=== PATIENT | female | born 1955 | race Caucasian/White ===

== ENCOUNTER 2019-12-07 05:49 | Outpatient (RCR) | payer BC ==
[~2019-12-07] VITALS: Ht 160 cm; Wt 53.9 kg
[2019-12-07] MEDS ORDERED: ELDE1CAP PO (09:19)
[2019-12-07] MEDS ORDERED: CALC-794 PO (09:19)
[2019-12-07 09:23] VITALS: BP 125/65
[2019-12-07 09:52] LABS: BASOPHILS % (AUTO) 1 % (0-10); EOSINOPHILS # (AUTO) 0.1 10^3/uL (0.0-0.3); EOSINOPHILS % (AUTO) 2 % (0-10); HEMATOCRIT 40 % (35-52); HEMOGLOBIN 13.7 G/DL (11.5-16.0); LYMPHOCYTES % (AUTO) 23 % (12-44); MEAN CORPUSCULAR HEMOGLOBIN 29 PG (25-34); MEAN CORPUSCULAR HGB CONC 34 G/DL (32-36); MEAN CORPUSCULAR VOLUME 86 FL (80-99); MONOCYTES # (AUTO) 0.7 X 10^3 (0.0-1.0); MONOCYTES % (AUTO) 16 % (0-12); NEUTROPHILS # (AUTO) 2.6 X 10^3 (1.8-7.8); NEUTROPHILS % (AUTO) 60 % (42-75); PLATELET COUNT 183 10^3/uL (130-400); RED CELL DISTRIBUTION WIDTH 12.1 % (10.0-14.5); WHITE BLOOD COUNT 4.3 10^3/uL (4.3-11.0)
--- NOTE | 2019-12-07 10:12 | Diagnostic Imaging Report ---
INDICATION: Preoperative evaluation prior to hysterectomy PA and lateral views of the chest were obtained. COMPARISON: No previous study is available for comparison at this time. FINDINGS: Heart size and pulmonary vasculature are within normal limits, and the lungs are clear, bilaterally. There is degenerative spurring noted about the acromioclavicular joints, greater on the right. IMPRESSION: Unremarkable chest. Dictated by: Dictated on workstation # [id number]
[2019-12-12] MEDS ORDERED: IBUP-1780 PO (06:40)
[2019-12-12] MEDS ORDERED: DCS100C PO (06:40)
[2019-12-12] MEDS ORDERED: OXYC1TAB87 PO (06:40)
== END 2019-12-07 15:07 | disposition home or self-care (01) ==
LOC: PREOP 05:49
PROVIDERS: ATTEND Obstetrics & Gynecology
DX: Z01.818 Encounter for other preprocedural examination (principal); Z01.812 Encounter for preprocedural laboratory examination; N81.11 Cystocele, midline; Z20.828 Contact with and (suspected) exposure to other viral communicable diseases
CPT/HCPCS: 71046; 85025; 86850; 86900; 86901; 87081; 93005; U0002; 36415; 87635

== ENCOUNTER 2019-12-11 06:10 | Day surgery (SDC) | payer BC ==
[~2019-12-11] VITALS: Ht 160 cm; Wt 53.9 kg
[2019-12-11] VITALS (11 sets, daily range): BP systolic 110–154; BP diastolic 56–78
[~2019-12-11 06:10] MED LIST: CALC-794 PO; ELDE1CAP PO
--- OUTSIDE RECORDS SUMMARY | 2019-12-11 06:14 | XMS REPORT | Continuity of Care Document ---
Demographics Preferred Language Unknown Marital Status Unknown Moravian Affiliation Unknown Race Unknown Ethnic Group Unknown Author Organization Unknown Address Unknown Phone Unavailable Allergies Active Description Code Type Severity Reaction Onset Reported/Identified Relationship to Patient Clinical Status Yes No Known Drug Allergies [id number] Drug Allergy Unknown N/A 12/07/2019 Medications There is no data. Problems There is no data. Procedures There is no data. Results Test Result Range SUREPATH PAP AND HPV mRNA E6/E7 - 09:26 CLINICAL INFORMATION: NRG LMP: NRG PREV. PAP: NRG PREV. 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 TOOL: MILY HPV mRNA E6/E7, SUREPATH VIAL Not Detected NOT DETECTED COMMENT: NRG PATHOLOGIST: NRG COMMENT NRG Coronavirus SARS-CoV-2 SO 2018 - 0 08:00 Coronavirus Ab [Units/volume] in Serum Negative Negative Complete blood count (CBC) with automate d white blood cell (WBC) differential - 12/07/19 09:35 Blood leukocytes automated count (number/volume) 4.3 10*3/uL 4.3-11.0 Blood erythrocytes automated count (number/volume) 4.66 10*6/uL 4.35-5.85 Venous blood hemoglobin measurement (mass/volume) 13.7 g/dL 11.5-16.0 Blood hematocrit (volume fraction) 40 % 35-52 Automated erythrocyte mean corpuscular volume 86 [ foz_us] 80-99 Automated erythrocyte mean corpuscular h emoglobin (mass per erythrocyte) 29 pg 25-34 Automated erythrocyte mean corpuscular h emoglobin concentration measurement (mass/volume) 34 g/dL 32-36 Automated erythrocyte distribution width ratio 12. 1 % 10.0- 14.5 Automated blood platelet count (count/volume) 183 10*3/uL 130-400 Automated blood platelet mean volume measurement 10.0 [foz_us] 7.4-10.4 Automated blood neutrophils/100 leukocytes 60 % 42-75 Automated blood lymphocytes/100 leukocytes 23 % 12-44 Blood monocytes/100 leukocytes 16 % 0-12 Automated blood eosinophils/100 leukocytes 2 % 0-10 Automated blood basophils/100 leukocytes 1 % 0-10 Blood neutrophils automated count (number/volume) 2.6 10*3 1.8-7.8 Blood lymphocytes automated count (number/volume) 1.0 10*3 1.0-4.0 Blood monocytes automated count (number/volume) 0. 7 10*3 0.0-1.0 Automated eosinophil count 0.1 10*3/uL 0 .0-0.3 Automated blood basophil count (count/volume) 0.0 10*3/uL 0.0-0.1 Blood type T Indirect antibody screen pa tommie - 12/07/19 09:35 ABO+Rh group OP NRG Blood group antibody screen NEGATIVE NR G Methicillin resistant Staphylococcus aur eus (MRSA) screening culture - 12/07/19 09:35 Methicillin resistant Staphylococcus aureus (MRSA) scr eening culture NEG NRG Encounters ACCT No. Visit Date/Time Discharge Status Pt. Type Provider Facility Loc./Unit Complaint [id number] 08/30/2019 09:15:00 Document Registration [id number] 12/07/2019 05:49:00 020 15:07:00 DIS Outpatient SEALS MARIAJOSE HOGAN Via [facility] PREOP UTERINE PROLAPSE [id number] 12/11/2019 07:30:00 P EN Preadmit SEALMARIAJOSE Almanza DO Via [facility] SDC UTERINE PROLAPSE
[2019-12-11] MEDS ORDERED: LACTATED RINGERS 1,000 ML IV PRN (06:17)
[2019-12-11] MEDS ORDERED: metroNIDAZOLE 500MG/100ML IVPB 100 ML IV ONE (06:30)
[2019-12-11] MEDS ORDERED: ceFAZolin 2 GM IV Premixed 50 ML IV ONE (06:30)
[2019-12-11] MEDS ORDERED: proPOfol 200 MG/20 ML (DIPRIVAN) VIAL IV ONE (06:38)
[2019-12-11] MEDS ORDERED: LACTATED RINGERS 1,000 ML IV ONE (06:38)
[2019-12-11] MEDS ORDERED: LIDOCAINE PF 2% 5 ML (XYLOCAINE) VIAL ONE (06:38)
[2019-12-11] MEDS ORDERED: ROCURONIUM 10 MG/ML 5 ML SYRINGE IV ONE (06:38)
[2019-12-11] MEDS ORDERED: ONDANSETRON 4 MG/2 ML (SDV) Z0FRAN ONE (06:38)
[2019-12-11] MEDS ORDERED: fentaNYL INJECTION 100 MCG/2 ML AMP ONE (06:38)
[2019-12-11] MEDS ORDERED: LIDOCAINE/EPI 2% 1:100,00 (XYLOCAINE) 20 ML VIAL ONE ×2 (06:39→08:07)
[2019-12-11] MEDS ORDERED: MIDAZOLAM 2 MG/2 ML (VERSED) VIAL ONE (06:39)
[2019-12-11] MEDS ORDERED: ESTROGENS CONJ. CREAM 30 GM (PREMARIN) TUBE ONE (06:39)
[2019-12-11] MEDS ORDERED: DEXAMETHASONE 10 MG/ML (DECADRON) 1 ML VIAL ONE (06:41)
[2019-12-11] MEDS ORDERED: SEVOFLURANE (ULTANE) 15 ML INHAL SOLN ONE ×4 (06:41→08:23)
[2019-12-11] MEDS ORDERED: NEOSTIGMINE 3 MG/3 ML VIAL ONE (06:41)
[2019-12-11] MEDS ORDERED: GLYCOPYRROLATE 0.2 MG/ML (ROBINUL) 2 ML VIAL ONE (06:41)
--- NOTE | 2019-12-11 07:04 | History & Physical-OB/GYN ---
History of Present Illness History of Present Illness Reason for visit/HPI Ms. Junior presents to the hospital for scheduled surgery, Total Vaginal Hysterectomy with Anterior Colporrhaphy secondary to cystocele and uterine prolapse. Date of Admission December 11, 2019 Date Seen by a Provider: Dec 11, 2019 Time Seen by a Provider: 06:50 I consulted on this patient on 12/11/19 06:59 Attending Physician Da Sandoval DO Admitting Physician Da Sandoval DO Consult Allergies and Home Medications Allergies Coded Allergies: No Known Drug Allergies (Unverified , 12/07/19) Home Medications Calcium Carb & Citrate/Vit D3 1 Each Tablet.er, 1 EACH PO DAILY, (Reported) Elderberry Fruit and Flower 1 Each Capsule, 1 EACH PO DAILY, (Reported) Patient Home Medication List Home Medication List Reviewed: Yes Past Nmfakzg-Dabstq-Bqfhuz Hx Patient Social History Marrital Status: 2nd Hand Smoke Exposure: No Recent Foreign Travel: No Contact w/other who traveled: No Recent Hopitalizations: No Seasonal Allergies Seasonal Allergies: Yes Surgeries Yes (D&C, L MASTECTOMY) Respiratory No Cardiovascular No Neurological No Reproductive System Sexually Transmitted Disease: No HIV/AIDS: No Female Reproductive Disorders: Denies Genitourinary Yes (CYSTOCELE) Gastrointestinal No Musculoskeletal Yes Arthritis Endocrine History of Endocrine Disorders: No HEENT History of HEENT Disorders: Yes (GLASSES) Loss of Vision: Denies Hearing Impairment: Denies Cancer Yes Breast Did You Recieve Any Treatments: Yes Type of Treatment: Surgical Intervention Psychosocial History of Psychiatric Problem: No Integumentary History of Skin or Integumenta: No Blood Transfusions History of Blood Disorders: No Adverse Reaction to a Blood Tr: No (N/A) Review of Systems Constitutional: see HPI Physical Exam Physical Exam Vital Signs Capillary Refill : General Appearance: No Apparent Distress, WD/WN Respiratory: Chest Non Tender, Lungs Clear, Normal Breath Sounds Cardiovascular: Regular Rate, Rhythm, No Murmur Abdominal: normal bowel sounds, non tender, soft Extremity: Normal Inspection, Normal Range of Motion, No Calf Tenderness Assessment/Plan Assessment and Plan Assessment: Uterine Prolapse 2. Cystocele Plan: Ms. Rivas is scheduled for a Total Vaginal Hysterectomy with Anterior Colporrhaphy. The procedure and its associated risks were reviewed. All questions were answered. Admission Diagnosis Admission Status: Inpatient Order (span 2 midnights) Reason for Inpatient Admission: Scheduled surgery, Total Vaginal Hysterectomy with Anterior Colporrhaphy DA SANDOVAL DO Dec 11, 2019 07:04
[2019-12-11] MEDS ORDERED: BENZOCAINE/MENTHOL (DERMOPLAST) 60 ML CAN TP PRN (08:30)
[2019-12-11] MEDS ORDERED: fentaNYL INJECTION 100 MCG/2 ML AMP IVP PRN (08:30)
[2019-12-11] MEDS ORDERED: ONDANSETRON 4 MG/2 ML (SDV) Z0FRAN IVP PRN (08:30)
--- NOTE | 2019-12-11 08:37 | Anesthesia-General Post-Op ---
General Patient Condition Mental Status/LOC: Same as Preop Cardiovascular: Satisfactory Nausea/Vomiting: Absent Respiratory: Satisfactory Pain: Controlled Complications: Absent Post Op Complications Complications None Follow Up Care/Instructions Patient Instructions None needed. Anesthesia/Patient Condition Patient Condition Patient is doing well, no complaints, stable vital signs, no apparent adverse anesthesia problems. No complications reported per nursing. MEL KENDALL CRNA Dec 11, 2019 08:37
--- NOTE | 2019-12-11 08:49 | Operative Report ---
Operative Report Date of Procedure/Surgery Dec 11, 2019 Surgeon (s) MARIAJOSE FARR DO Retail Training Manager (s): None Post-Operative Diagnosis Uterine Prolapse 2. Cystocele Procedure Performed Total Vaginal Hysterectomy with Anterior Colporrhaphy Description of Procedure Anesthesia Type: General Estimated blood loss (mL): 50 ml Specimen(s) collected/removed Uterus with Cervix and portions of Vaginal Mucosa Packing: Vaginal Packing moistened with Premarin Vaginal Cream Description of the Procedure Ms. Rivas was taken to the Operating Room with IV fluid running. Once in the OR, general anesthesia was administered without difficulty. She was then placed in the dorsal lithotomy position, prepped and draped in the normal sterile fashion. A Espinosa Catheter was inserted and her bladder was drained. A weighted speculum was introduced into the vaginal vault. the cervix was grasped with a single toothed tenaculum and circumferentially injected with local with Epinephrine. A circumferential incision was made in this same area. The cer vicovaginal fascia was dissected off the anterior portion of the cervix and the anterior cul de sac was entered bluntly. A right angle retractor was placed through this incision to displace the bladder. The posterior cul de sac was entered sharply and a "ski slope" weighted speculum replaced the previous weighted speculum. At this point, the uterosacral cardinal complex was bila terally clamped, cut and suture ligated with 0-Vicryl. Then, the broad ligament on both sides were serially clamped, cut and suture ligated with 0-Vicryl. The coronal edge of the uterus was clamped, bilaterally, cut and the uterus was delivered. The pedicles were suture ligated with 0-Vicryl. All pedicles were viewed and noted to be hemostatic. The peritoneum was purse string closed with 3-0 Vicryl. The vaginal cuff was closed with 0-Vicryl in a running locked fashion (attached to the uterosacral cardinal complex). Just below the urethral meatus was grasped with an Allis clamp. The tissue moving posteriorly was injected with local with Epinephrine. A linear incision was made going anterior to posterior. Each side of the incision was grasped with an Allis. The underlying tissue was dissected off laterally until fascial tissue was encountered. The fascia was approximated with 2-0 Vicryl. The excess vaginal tissue was excised and sent to pathology. The cut edges were closed with 0- Vicryl in a running locked manner. The vaginal vault was packed with vaginal packing moistened with Premarin Vaginal Creams. Sponge, needle and instrument counts were correct x 3. Ms. Junior was taken to the Recovery Room in good and stable condition where postoperative orders were written. Findings of the Procedure Small uterus, Grade 2 Cystocele Allergies and Home Medications Allergies Coded Allergies: No Known Drug Allergies (Unverified , 12/07/19) Home Medications Calcium Carb & Citrate/Vit D3 1 Each Tablet.er, 1 EACH PO DAILY, (Reported) Elderberry Fruit and Flower 1 Each Capsule, 1 EACH PO DAILY, (Reported) Patient Home Medication List Home Medication List Reviewed: Yes MARIAJOSE FARR DO Dec 11, 2019 08:49
--- NOTE | 2019-12-11 09:25 | NUR ---
pt transferred to room 306 via bed with WAFER FABRICATOR"s @ side. pt awake. bedside report received Deloris Shaw RN.
--- NOTE | 2019-12-11 09:39 | NUR ---
initial assessment completed, see interventions for further. v-pad in place, no active bleeding noted. ice pack to site. virk to DD with clear, yellow urine noted. SCD's to LE's. IV site patent. POC reviewed with pt and , states understanding.
[2019-12-11] MEDS: LACTATED RINGERS 1,000 ML IV SCH ×2 (10:37→18:24)
[2019-12-11] MEDS ORDERED: LORazepam INJ 2 MG/ML (ATIVAN) VIAL IVP ONE (11:00)
[2019-12-11] MEDS: METOCLOPRAMIDE 10 MG (REGLAN) TAB PO SCH ×2 (11:20→18:25)
--- NOTE | 2019-12-11 14:30 | NUR ---
REPORT RECEIVED FROM Laura CRISTINA RN
[2019-12-11] MEDS: ONDANSETRON 4 MG (ZOFRAN) ORAL DISSOLVE TAB PO SCH (14:41)
--- NOTE | 2019-12-11 15:00 | NUR ---
SLEEPING WHEN ENTERED ROOM. NO APPARENT DISTRESS.
--- NOTE | 2019-12-11 16:00 | NUR ---
VSS. ICE PACK FRESHENED. DENIES ANY PAIN. GOOD URINE OUTPUT. PT HAS BEEN SLEEPING. SPOUSE PLANNING TO GO HOME FOR THE NIGHT.
--- NOTE | 2019-12-11 17:00 | NUR ---
DR. FARR IN TO SEE PT/ PT DOZING. SPOUSE LEFT. NO APPARENT DISTRESS.
--- NOTE | 2019-12-11 18:15 | NUR ---
VAGINAL PACKING IN PLACE. NO VAGINAL BLEEDING NOTED AROUND PACK. ICE PACK FRESHENED FOR ABDOMEN.
--- NOTE | 2019-12-11 18:30 | NUR ---
TOOK SMALL AMOUNT OF CLEAR LIQUIDS. CONTINUES TO DENY ANY PAIN.
[2019-12-11] MEDS ORDERED: ZOLPIDEM 5 MG (AMBIEN) TAB PO SCH (21:00)
[2019-12-12 00:54] VITALS: BP 118/65
[2019-12-12] MEDS: METOCLOPRAMIDE 10 MG (REGLAN) TAB PO SCH ×2 (00:54→05:55)
[2019-12-12] MEDS: ONDANSETRON 4 MG (ZOFRAN) ORAL DISSOLVE TAB PO SCH ×2 (01:08→06:10)
[2019-12-12 03:35] VITALS: BP 110/58
[2019-12-12] MEDS ORDERED: BISACODYL 10 MG SUPP (DULCOLAX) PR ONE (05:00)
[2019-12-12] MEDS ORDERED: MILK OF MAGNESIA 400 MG/5 ML 30 ML UDC PO ONE (05:00)
[2019-12-12 05:03] LABS: BASOPHILS % (AUTO) 0 % (0-10); EOSINOPHILS % (AUTO) 0 % (0-10); HEMATOCRIT 38 % (35-52); HEMOGLOBIN 13.2 G/DL (11.5-16.0); LYMPHOCYTES # (AUTO) 1.4 X 10^3 (1.0-4.0); LYMPHOCYTES % (AUTO) 13 % (12-44); MEAN CORPUSCULAR HEMOGLOBIN 29 PG (25-34); MEAN CORPUSCULAR HGB CONC 35 G/DL (32-36); MEAN CORPUSCULAR VOLUME 85 FL (80-99); MEAN PLATELET VOLUME 10.1 FL (7.4-10.4); MONOCYTES % (AUTO) 10 % (0-12); NEUTROPHILS # (AUTO) 7.7 X 10^3 (1.8-7.8); NEUTROPHILS % (AUTO) 76 % (42-75); PLATELET COUNT 210 10^3/uL (130-400); RED CELL DISTRIBUTION WIDTH 12.3 % (10.0-14.5); WHITE BLOOD COUNT 10.1 10^3/uL (4.3-11.0)
[2019-12-12] MEDS: LACTATED RINGERS 1,000 ML IV SCH (06:07)
[2019-12-12] MEDS ORDERED: DCS100C PO (06:40)
[2019-12-12] MEDS ORDERED: IBUP-1780 PO (06:40)
[2019-12-12] MEDS ORDERED: OXYC1TAB87 PO (06:40)
--- NOTE | 2019-12-12 06:45 | Discharge Summary ---
Diagnosis/Chief Complaint Date of Admission December 11, 2019 Date of Discharge December 12, 2019 Discharge Date: Dec 12, 2019 Discharge Time: 09:00 Admission Diagnosis Admission Diagnosis Uterine Prolapse 2. Cystocele Discharge Diagnosis Uterine Prolapse 2. Cystocele Reason Hospital Visit Ms. Junior presents to the hospital for scheduled surgery, Total Vaginal Hysterectomy with Anterior Colporrhaphy secondary to cystocele and uterine prolapse. Discharge Summary Hospital Course Was the Problem List Reviewed?: Yes Hospital Course Ms. Rivas was admitted for scheduled surgery, Total Vaginal Hysterectomy with Anterior Colporrhaphy. The surgery was performed without complications Postoperatively, she was placed on pain medications and other comfort care measures. Her day was unremarkable. Postoperative Day #1 found Ms. Rivas controlling her pain with oral medications, ambulating, moving her bowels, voiding and tolerating a Regular Diet. Her vital signs remained stable throughout her hospitalization. The remainder of her hospitalization was unremarkable. We will discharge her to home with instructions, prescriptions and a follow up appointment. Labs Laboratory Tests 12/12/19 04:38: Neutrophils (%) (Auto) 76H Procedures None. Discharge Physical Examination Allergies: Coded Allergies: No Known Drug Allergies (Unverified , 12/07/19) Vitals & I&Os Vital Signs Date Time Temp Pulse Resp B/P (MAP) Pulse Ox O2 Delivery O2 Flow Rate FiO2 12/12/19 03:35 36.6 65 16 110/58 (75) 97 Room Air 12/11/19 09:10 0 General Appearance: Alert, Oriented X3, Cooperative HEENT: Atraumatic Respiratory: Clear to Auscultation, Normal Air Movement Cardiovascular: Regular Rate Abdominal: Normal Bowel Sounds, Soft, No Tenderness Extremities: No Clubbing, No Cyanosis, No Edema Skin: No Rashes Neuro: Normal Gait, Normal Speech Psych/Mental Status: Mental Status NL Discharge Home Medications Reviewed and agree with Discharge Medication list on patient's Discharge In struction sheet Instructions to Patient/Family Please see electronic discharge instructions given to patient. Clinical Quality Measures DVT/VTE Risk/Contraindication: Risk Factor Score Per Nursin RFS Level Per Nursing on Admit: 4+=Very High MARIAJOSE FARR DO Dec 12, 2019 06:45
[2019-12-12] MEDS ORDERED: DOCUSATE SODIUM 100 MG (COLACE) CAP PO SCH (09:00)
[2019-12-12 09:19] VITALS: BP 134/69
--- NOTE | 2019-12-12 09:25 | NUR ---
0918 COLACE GIVEN PO; SEE EMAR FOR FURTHER. 0919 VS OBTAINED. 09 PHYSICAL ASSESSMENT COMPLETED; SEE INTERVENTION FOR FURTHER. 09 IV DC'D; CATHETER TIP INTACT. GAUZE AND BAND AID APPLIED OVER SITE.
--- NOTE | 2019-12-12 09:28 | NUR ---
DISCHARGE PAPERS PROVIDED AND REVIEWED WITH PT, PT VERBALIZES UNDERSTANDING AND DENIES ANY QUESTIONS AT THIS TIME. PAPER SIGNED.
--- NOTE | 2019-12-12 11:15 | NUR ---
PT DISCHARGED FROM -[id number] TO [facility] AMB[facility]ORY IN STABLE CONDITION ACC BY THIS RN AND S/O.
== END 2019-12-12 11:15 | disposition home or self-care (01) ==
LOC: SDC 06:10 → WS 09:25 → SDC 12-12 11:15
PROVIDERS: ATTEND Obstetrics & Gynecology
DX: N81.11 Cystocele, midline (principal); E78.5 Hyperlipidemia, unspecified; N80.0 Endometriosis of uterus; M19.90 Unspecified osteoarthritis, unspecified site; Z85.3 Personal history of malignant neoplasm of breast
CPT/HCPCS: 36415; 84703; 85025; 86850; 86900; 86901; 88307; 94664